=== PATIENT | male | born 1995 | race African-American/Black ===

== ENCOUNTER 2025-03-27 19:59 | Emergency (ER) | payer SELFPAY ==
[2025-03-27] MEDS ORDERED: Metoclopramide HCl 10 MG (2 mL) VIAL ONE (20:27)
[2025-03-27] MEDS ORDERED: diphenhydrAMINE 50 MG/ML VIAL ONE (20:27)
[2025-03-27] MEDS ORDERED: Ketorolac Tromethamine 30 MG (1 mL) VIAL ONE (20:27)
[2025-03-27 20:50] LABS: #Basophils Less than 0.03 10x3/uL (0.0-0.2); #Eosinophils 0.04 10x3/uL (0.0-0.7); #Monocytes 0.42 10x3/uL (0.11-0.59); #Neutrophils 2.56 10x3/uL (1.40-6.50); %Basophils 0.5 % (0.0-1.0); %Eosinophils 1.0 % (0.0-10.0); %Lymphocytes 24.9 % (21.0-51.0); %Monocytes 10.4 % (0.0-10.0); %Neutrophils 63.2 % (42.0-75.0); Hematocrit 46.8 % (42.0-52.0); Hemoglobin 15.8 g/dL (14.0-18.0); Mean Corpuscular Hemoglobin 30.3 pg (27.0-31.0); Mean Corpuscular Volume 89.8 fL (78.0-98.0); Platelet Count 195 10x3/uL (130-400); Red Blood Cell (RBC) Count 5.21 mill/uL (4.70-6.10); White Blood Cell (WBC) Count 4.05 10x3/uL (4.8-10.8)
[2025-03-27 21:09] LABS: ALT (SGPT) 34 U/L (Less than 45); AST (SGOT) 37 U/L (11-34); Albumin 4.7 g/dL (3.1-4.5); Alkaline Phosphatase 74 U/L (40-110); Anion Gap 13 mmol/L (10-20); BUN (Urea Nitrogen) 21 mg/dL (8.9-20.6); Bilirubin, Total 0.5 mg/dL (0.3-1.2); CK (CPK) 421 U/L (30-200); Calc. Creatinine Clearance 0 mL/min (70-130); Calcium 9.7 mg/dL (7.8-10.44); Carbon Dioxide 24 mmol/L (22-29); Chloride 106 mmol/L (98-107); Globulin 3.0 g/dL (2.4-3.5); Glucose 80 mg/dL (70-105); Lipase 17 U/L (8-78); Potassium 4.2 mmol/L (3.5-5.1); Sodium 139 mmol/L (136-145)
[2025-03-27] MEDS ORDERED: Ondansetron PF 4 MG/2 ML Vial ONE (21:25)
[2025-03-27 23:07] LABS: ALT (SGPT) 29 U/L (Less than 45); AST (SGOT) 29 U/L (11-34); Albumin 3.8 g/dL (3.1-4.5); Alkaline Phosphatase 63 U/L (40-110); Anion Gap 13 mmol/L (10-20); BUN (Urea Nitrogen) 19 mg/dL (8.9-20.6); Bilirubin, Total 0.4 mg/dL (0.3-1.2); CK (CPK) 320 U/L (30-200); Calc. Creatinine Clearance 0 mL/min (70-130); Calcium 8.2 mg/dL (7.8-10.44); Carbon Dioxide 20 mmol/L (22-29); Chloride 111 mmol/L (98-107); Globulin 2.5 g/dL (2.4-3.5); Glucose 77 mg/dL (70-105); Potassium 3.9 mmol/L (3.5-5.1); Sodium 140 mmol/L (136-145)
== END 2025-03-27 23:16 | disposition home or self-care (01) ==
LOC: ERS 19:59
DX: E86.0 Dehydration (principal)
CPT/HCPCS: 36415; 80053; 82550; 83690; 85025; 96361; 96374; 96375; 96376; J1200; J1885; J2405; J2765; J3010

== ENCOUNTER 2025-04-20 20:20 | Emergency (ER) | payer SELFPAY ==
[2025-04-20 22:28] LABS: CAUTI Indications for Culture Dysuria,urgency,freq; Glucose, Urine (Dipstick) Normal (Negative); Leukocyte 500 Leu/uL (Negative); Protein, Urine (Dipstick) 10 mg/dL (Neg-Trace); RBC/HPF Greater than 50 HPF (0-3); Specific Gravity, Urine 1.014 (1.002-1.036); WBC/HPF Greater than 50 HPF (0-3)
[2025-04-20 22:38] LABS: Bacteria/HPF Rare-Few HPF (None Seen)
[2025-04-20 22:39] LABS: Urine Culture Reflex Yes Yes
[2025-04-22 01:21] LABS: Chlam.trachomatis by PCR,Urine Not Detected (NotDetected); GC N.gonorrhoeae PCR,UrineVOID Not Detected (NotDetected)
== END 2025-04-20 23:05 | disposition home or self-care (01) ==
LOC: ERS 20:20
DX: N39.0 Urinary tract infection, site not specified (principal); F17.210 Nicotine dependence, cigarettes, uncomplicated
CPT/HCPCS: 81001; 87077; 87086; 87186; 87491; 87591; 99283